=== PATIENT | female | born 1990 | race African-American/Black ===

== ENCOUNTER 2017-09-16 21:12 | Emergency (ER) | payer MEDICAID ==
[~2017-09-16] VITALS: Ht 172.7 cm; Wt 68.0 kg
[2017-09-16] MEDS ORDERED: SODIUM CHLORIDE 0.9% 1,000 ML IV ONE (22:14)
[2017-09-16] MEDS ORDERED: LORAZEPAM 2MG/ML CPJ IV STA (22:14)
[2017-09-17 00:15] LABS: BASOPHILS % 0.6 % (0.0-2.0); EOSINOPHILS % 1.8 % (0.0-5.0); HEMATOCRIT. 39.9 % (36.0-48.0); HEMOGLOBIN. 13.5 g/dL (12.0-16.0); LYMPHOCYTES % 40.8 % (20.0-50.0); MEAN CORPUSCULAR HEMOGLOBIN 30.5 pg (28.0-32.0); MEAN CORPUSCULAR VOLUME 90.3 fL (81.0-99.0); MEAN PLATELET VOLUME 9.6 fl (7.4-10.4); MONOCYTES % 8.9 % (2.0-8.0); NEUTROPHILS % 47.9 % (40.0-76.0); PLATELET 225 x1000/uL (130-400); RED BLOOD CELL COUNT 4.42 mill/uL (4.2-5.4); RED CELL DISTRIBUTION WIDTH 14.6 % (11.6-14.6)
[2017-09-17 00:19] LABS: CHLORIDE 105 mEq/L (98-107)
[2017-09-17 00:23] LABS: ETHANOL BLOOD < 10 mg/dL
[2017-09-17 00:25] LABS: AMMONIA 28 uMol/L (<32)
[2017-09-17 00:27] LABS: CREATINE KINASE 134 IU/L (26-192)
[2017-09-17 00:34] LABS: INR 1.1; PROTHROMBIN TIME 11.4 sec (9.4-11.6)
[2017-09-17] MEDS ORDERED: SODIUM CHLORIDE 0.9% 1000ML BAG (SEPSIS BOLUS) IV NR (01:45)
[2017-09-17 02:34] LABS: HCG SCREEN NEGATIVE
[2017-09-17] MEDS ORDERED: LORAZEPAM 2MG/ML CPJ IV ONE (04:15)
[2017-09-17 05:49] LABS: CLARITY URINE CLEAR (CLEAR); COLOR URINE YELLOW (YELLOW); KETONES URINE 1+ (NEGATIVE); LEUKOCYTE ESTERASE URINE NEGATIVE (NEGATIVE); NITRITE URINE NEGATIVE (NEGATIVE); OCCULT BLOOD URINE NEGATIVE (NEGATIVE); PH URINE 7.5 (4.5-8.0); PROTEIN URINE NEGATIVE (NEGATIVE); UROBILINOGEN URINE 0.2 E.U./dL (0.2-1.0)
[2017-09-17 06:16] LABS: *BARBITURATES SCREEN URINE NEGATIVE (NEGATIVE); *BENZODIAZEPINES SCREEN URINE NEGATIVE (NEGATIVE); *COCAINE SCREEN URINE NEGATIVE (NEGATIVE); METHADONE URINE SCREEN NEGATIVE (NEGATIVE); OPIATES URINE SCREEN NEGATIVE (NEGATIVE)
[2017-09-17 06:19] LABS: PHENCYCLIDINE URINE SCREEN NEGATIVE (NEGATIVE)
[2017-09-17 06:35] LABS: *AMPHETAMINES SCREEN URINE PRESUMTIVE POSITIVE (NEGATIVE); CANNABINOID URINE SCREEN PRESUMTIVE POSITIVE (NEGATIVE)
[2017-09-17 23:19] VITALS: BP 101/77
== END 2017-09-17 23:31 ==
LOC: ER 21:12
DX: F31.9 Bipolar disorder, unspecified (principal); E87.2 Acidosis; Y90.0 Blood alcohol level of less than 20 mg/100 ml
CPT/HCPCS: 36415; 51701; 70450; 71045; 80053; 80305; 80307; 80329; 81003; 82140; 82550; 83605; 83690; 84443; 84703; 85025; 85610; 96361; 96374; 96376; 99285; G0482; J2060; J7030; Z7610

== ENCOUNTER 2020-10-01 02:58 | Emergency (ER) | payer SELFPAY ==
[~2020-10-01] VITALS: Ht 175.3 cm; Wt 66.0 kg
[2020-10-01] MEDS ORDERED: IBUPROFEN 400MG TABLET PO ONE (03:30)
[2020-10-01] MEDS ORDERED: ACETAMINOPHEN 325MG TABLET PO ONE (03:30)
[2020-10-01 03:53] VITALS: BP 108/65
[2020-10-01] MEDS ORDERED: IBUP-2029 MT (04:45)
== END 2020-10-01 05:15 | disposition home or self-care (01) ==
LOC: ER 02:58
DX: S39.012A Strain of muscle, fascia and tendon of lower back, initial encounter (principal); X58.XXXA Exposure to other specified factors, initial encounter; Y93.89 Activity, other specified; Y92.89 Other specified places as the place of occurrence of the external cause; F25.0 Schizoaffective disorder, bipolar type
CPT/HCPCS: 99283